=== PATIENT | female | born 1990 | race Caucasian/White ===

== ENCOUNTER 2017-02-02 14:10 | Emergency (ER) | payer BC, MEDICAID ==
[2017-02-02 14:47] VITALS: BP 93/47
--- NOTE | 2017-02-02 15:58 | UC ---
Abdominal Pain Female HPI - History of Current Complaint Chief Complaint: UCAbdominalPain Stated Complaint: SEVERE LOWER ABDOMINAL PAIN Hx Obtained From: Patient Hx Last Menstrual Period: 2 WKS AGO ?: No Onset/Duration: Sudden Onset - sharp stabbing pain. 10:45 AM today, Lasting Hours - 5, Still Present - but a little better. Timing: Constant Severity Initially: Severe Severity Currently: Mild Pain Intensity: 2 Location: Discrete At: RUQ, Suprapubic Radiates: Yes Radiates to: Other - toward the rectum. Character: Aching - right now, Cramping, Sharp Aggravating Factor(s): Movement Alleviating Factor(s): Position - with rest Associated Signs and Symptoms: Positive: Back Pain. Negative: Fever, Constipation, Nausea, Vomiting, Diarrhea - Risk Factors Ectopic Risk Factor: Negative Ovarian Torsion Risk Factor: Reproductive Age Allergies/Adverse Reactions: Allergies Allergy/AdvReac Type Severity Reaction Status Date / Time No Known Allergies Allergy Verified 02/02/17 14:47 Home Medications: Home Medications Ibuprofen [Ibuprofen 200 MG] 400 mg PO Q6H 02/02/17 [History Confirmed 02/02/17] Norethindrone Acet & Eth Estra [Microgestin 1.5/30 1.5-30 mg-Mcg] 1 tab PO DAILY 02/02/17 [History Confirmed 02/02/17] PMH/Surg Hx/FS Hx/Imm Hx Respiratory History Of: Reports: Asthma - Surgical History Surgical History: None - Family History Known Family History: Positive: Hypertension Negative: Cardiac Disease, Diabetes - Social History Occupation: Employed Full-time Lives: With Family Alcohol Use: Rare Substance Use Type: None Smoking Status (MU): Never Smoked Tobacco Have You Smoked in the Last Year: No Review of Systems Gastrointestinal: Abdominal Pain All Other Systems Reviewed And Are Negative: Yes Physical Exam Triage Information Reviewed: Yes Appearance: Well-Nourished, Ill-Appearing, Pain Distress Vital Signs: Initial Vital Signs Temp 99.3 F 02/02/17 14:40 Pulse 61 02/02/17 14:40 Resp 18 02/02/17 14:40 BP 93/47 02/02/17 14:40 Pulse Ox 100 02/02/17 14:40 Vital Signs Reviewed: Yes Eyes: Positive: Conjunctiva Clear ENT: Positive: Pharynx normal, TMs normal Neck exam: Normal Respiratory Exam: Normal Cardiovascular Exam: Normal Abdomen Description: Positive: McBurney's Point Tenderness, Peritoneal Signs - percussion tenderness Bowel Sounds: Positive: Present Musculoskeletal: Positive: Other: - Antalgic gait bent over. Neurological Exam: Normal Psychological Exam: Normal Skin Exam: Normal Abd Pain Female Course/Dx - Differential Dx/Diagnosis Differential Diagnosis: Appendicitis, Ectopic , Pelvic Inflammatory Disease Provider Diagnoses: Acute right lower quadrant abdominal pain - Physician Notification/Consults Discussed Patient Care With: Sally Story Time Discussed With Above Provider: 16:10 Instructed by Provider To: Transfer - to [facility]. Discharge - Discharge Plan Condition: Stable Disposition: TRANS HIGHER LVL OF CARE FAC
== END 2017-02-02 16:19 | disposition short-term general hospital (02) ==
LOC: UCCORT 14:10
DX: R10.31 Right lower quadrant pain (principal); Z32.02 Encounter for pregnancy test, result negative; J45.909 Unspecified asthma, uncomplicated
CPT/HCPCS: 81003; 84702; 99212; G0463